=== PATIENT | male | born 1940 | race Caucasian/White ===

== ENCOUNTER 2019-11-12 22:58 | Emergency (ER) | payer OTHER, MEDICARE, BC ==
--- NOTE | 2019-11-12 23:33 | CT ---
PROCEDURE INFORMATION: Exam: CT Head Without Contrast Exam date and time: 11/12/2019 11:23 PM Age: 79 years old Clinical indication: Injury or trauma; Fall; Laceration; Without loss of consciousness; Without residual foreign body; Scalp; Injury date: Today; Additional info: Fall (hit posterior head on bar stool) TECHNIQUE: Imaging protocol: Computed tomography of the head without contrast. Radiation optimization: All CT scans at this facility use at least one of these dose optimization techniques: automated exposure control; mA and/or kV adjustment per patient size (includes targeted exams where dose is matched to clinical indication); or iterative reconstruction. COMPARISON: (No prior similar studies are available for comparison.) FINDINGS: There is no mass lesion or mass effect. There is diffuse central and cortical atrophy consistent with age. There is no CT evidence of acute parenchymal ischemia. There is no intra-axial or extra-axial hemorrhage. There is no evidence of acute obstructive sinonasal disease. Mastoid air cells are grossly normal. Visualized osseous structures are normal. Other findings: EXAM TYPE: CT of the BRAIN; DATE AND TIME: 11/12/2019 11:23 PM; CLINICAL INFORMATION:; Injury or trauma; Fall; Laceration; Without loss of consciousness; Without residual foreign body; Scalp; Injury date: Today; Additional info: Fall (hit posterior head on bar stool) IMPRESSION: 1. Central and cortical atrophy consistent with age. 2. No CT evidence of acute infarction, intracranial hemorrhage or mass.
--- NOTE | 2019-11-12 23:40 | EDM.PDOC ---
ED HPI GENERAL MEDICAL PROBLEM - General Chief Complaint: Trauma Stated Complaint: FELL AT RAZORS AND HIT HEAD Time Seen by Provider: 11/12/19 23:30 Source of Information: Reports: Patient History Limitations: Reports: No Limitations - History of Present Illness INITIAL COMMENTS - FREE TEXT/NARRATIVE: HPI: This 79 yo male patient reports to the ED due to falling off a bar stool hitting the back of his head during the fall. The patient denies any loss of consciousness before, during or after the fall. EMS was called but the patient refused transport. Primary Survey Airway: open and patient Breathing: regular without additional effort Circulation: no major bleeding noted Deformity: no deformity noted Expose: as appropriate GCS: 15 Secondary Survey HEENT Head: 2 cm laceration to posterior skull (bleeding controlled) Eyes: PERRLA Ears: no obvious trauma, canals open Nose: no deformity, no bleeding, mucosa moist Mouth: no noted trauma Throat: no abnormalities noted Neck: Subtle, normal range of motion no cervical tenderness Chest: lung sounds were clear and equal bilaterally, Heart was RRR, no murmurs, rubs or gallop Abdomen: normoactive bowel sounds, no organomegally, no tenderness on palpation Pelvis: stable Extremities: CMS intact Provider Trauma Notes Arrival Time: 2300 GCS on Arrival: 15 C-collar present on arrival: No GCS at 1 hour: 15 Off spine board: NA Time primary survey: 2330 Time secondary survey: 233 Time C-collar cleared: NA By: Time removed: GCS on discharge: 15 Onset: Today Duration: Minutes: (30), Improving Location: Reports: Head (Posterior scalp laceration) Quality: Reports: Ache, Dull Severity: Mild Improves with: Reports: None Worsens with: Reports: None Context: Reports: Other Associated Symptoms: Reports: No Other Symptoms Review of Systems - Review of Systems Review Of Systems: Comprehensive ROS is negative, except as noted in HPI. ED EXAM, GENERAL - Physical Exam Exam: See Below Exam Limited By: No Limitations General Appearance: Alert, WD/WN, No Apparent Distress Eye Exam: Bilateral Eye: EOMI, Normal Inspection, PERRL Ears: Normal External Exam, Normal Canal, Hearing Grossly Normal, Normal TMs Nose: Normal Inspection, Normal Mucosa, No Blood Throat/Mouth: Normal Inspection, Normal Lips, Normal Teeth, Normal Gums, Normal Oropharynx, Normal Voice, No Airway Compromise Head: Other (2 cm laceration to posterior scalp) Neck: Normal Inspection, Supple, Non-Tender, Full Range of Motion Respiratory/Chest: No Respiratory Distress, Lungs Clear, Normal Breath Sounds, No Accessory Muscle Use, Chest Non-Tender Cardiovascular: Normal Peripheral Pulses, Regular Rate, Rhythm, No Edema, No Gallop, No JVD, No Murmur, No Rub GI/Abdominal: Normal Bowel Sounds, Soft, Non-Tender, No Organomegaly, No Distention, No Abnormal Bruit, No Mass (Male) Exam: Deferred Rectal (Males) Exam: Deferred Back Exam: Normal Inspection, Full Range of Motion, NT Extremities: Normal Inspection, Normal Range of Motion, Non-Tender, Normal Capillary Refill, No Pedal Edema Neurological: Alert, Oriented, CN II-XII Intact, Normal Cognition, Normal Gait, Normal Reflexes, No Motor/Sensory Deficits Psychiatric: Normal Affect, Normal Mood Skin Exam: Warm, Dry, Wound/Incision (Posterior scalp) Lymphatic: No Adenopathy ED TRAUMA PROCEDURES - Laceration/Wound Repair Posterior Head Lac/Wound Length In cm: 2.0 Appearance: Subcutaneous, Linear Distal NVT: Neuro & Vascular Intact Skin Prep: Chlorhexidine (Hibiciens) Exploration/Debridement/Repair: Wound Explored, In a Bloodless Field, No Foreign Material Found Closed With: Ryan # of Sutures: 3 Drain Placement: No Sterile Dressing Applied: None Tetanus Status Addressed: Yes Complications: No Course - Orders/Labs/Meds Orders: Active Orders 24 hr Category Date Time Status EKG Documentation Completion [RC] STAT Care 11/12/19 23:07 Ordered CBC WITH AUTO DIFF [HEME] Stat Lab 11/12/19 23:06 Ordered COMPREHENSIVE METABOLIC PN,CMP [CHEM] Stat Lab 11/12/19 23:06 Ordered MANUAL DIFFERENTIAL QA/NC [HEME] Stat Lab 11/12/19 23:18 Results TROPONIN I [CHEM] Stat Lab 11/12/19 23:07 Ordered Labs: Laboratory Tests 11/12/19 11/12/19 Range/Units 23:18 23:18 WBC 5.6 (5.0-10.0) 10^3/uL RBC 4.33 L (4.6-6.2) 10^6/uL Hgb 14.3 (14.0-18.0) g/dL Hct 41.4 (40.0-54.0) % MCV 95.6 (80-100) fL MCH 33.0 (27.0-34.0) pg MCHC 34.5 (33.0-35.0) g/dL Plt Count 138 L (150-450) 10^3/uL Neut % (Auto) 28.8 L (42.2-75.2) % Lymph % (Auto) 54.3 H (20.5-50.1) % Sharp % (Auto) 11.3 H (2-8) % Eos % (Auto) 5.4 H (1.0-3.0) % Baso % (Auto) 0.2 (0.0-1.0) % Add Manual Diff Yes PT 10.3 (9.0-12.0) SEC INR 1.1 (0.9-1.2) - Re-Assessments/Exams Free Text/Narrative Re-Assessment/Exam: 11/12/19 23:50 The patient reports no additional symptoms or concerns upon reassessment. Departure - Departure Time of Disposition: 23:50 Disposition: Home, Self-Care 01 Condition: Fair Clinical Impression: Fall from ground level, Scalp laceration Head contusion Qualifiers: Encounter type: initial encounter Contusion of head detail: scalp Qualified Code(s): S00.03XA - Contusion of scalp, initial encounter - Discharge Information *PRESCRIPTION DRUG MONITORING PROGRAM REVIEWED*: Not Applicable *COPY OF PRESCRIPTION DRUG MONITORING REPORT IN PATIENT SHAHID: Not Applicable Instructions: Facial or Scalp Contusion, [id number], Sutures, Ryan, or Adhesive Wound Closure, [id number] Forms: ED Department Discharge Care Plan Goals: The patient was advised of the examination, lab, EKG and CT results during the visit. The patient was encouraged to rest and relax over the next 24 hours. The patient's wound margins were well approximated during the visit. The patient should have the ryan removed in about 10 days. If the patient has any additional symptoms or concerns, the patient should either return to the emergency department or visit his primary care facility. - My Orders Last 24 Hours: My Active Orders 11/12/19 23:06 CBC WITH AUTO DIFF [HEME] Stat COMPREHENSIVE METABOLIC PN,CMP [CHEM] Stat 11/12/19 23:07 EKG Documentation Completion [RC] STAT TROPONIN I [CHEM] Stat 11/12/19 23:18 MANUAL DIFFERENTIAL QA/NC [HEME] Stat - Assessment/Plan Last 24 Hours: My Active Orders 11/12/19 23:06 CBC WITH AUTO DIFF [HEME] Stat COMPREHENSIVE METABOLIC PN,CMP [CHEM] Stat 11/12/19 23:07 EKG Documentation Completion [RC] STAT TROPONIN I [CHEM] Stat 11/12/19 23:18 MANUAL DIFFERENTIAL QA/NC [HEME] Stat
[2019-11-12 23:46] LABS: ANION GAP 13.7 mEq/L (7-13); CHLORIDE,CL 99 mmol/L (98-107); SODIUM,NA 137 mmol/L (136-145)
== END 2019-11-13 00:01 | disposition home or self-care (01) ==
LOC: DL.ED 22:58
DX: S01.01XA Laceration without foreign body of scalp, initial encounter (principal); W07.XXXA Fall from chair, initial encounter
CPT/HCPCS: 12001; 36415; 70450; 80053; 84484; 85025; 85610; 93005; 99284-25